=== PATIENT | female | born 1975 | race Caucasian/White ===

== ENCOUNTER 2024-03-16 13:17 | Emergency (ER) | payer MEDICAID, SELFPAY ==
[2024-03-16 13:33] VITALS: BP 171/95; PULSE 84; RESP 16; TEMP 36.6; O2SAT 100
--- NOTE | 2024-03-16 14:02 | ED_ITS ---
HPI - General Adult General Chief complaint: Insect Bite Stated complaint: Bee stings on legs Time Seen by Provider: 03/16/24 13:39 History of Present Illness HPI narrative: This 48-year-old female comes in with her who was also stung by a bee. This patient was stung in her right lower leg. She has some localized swelling and mild erythema at the site where she was stung but is not displaying any other symptoms related to this bee sting. This tingling occurred about an hour prior to arrival. She states that she has been stung by bees in the past and never had any significant allergic reaction. Related Data Home Medications ?Medication ?Instructions ?Recorded ?Confirmed Unobtainable 03/16/24 03/16/24 Allergies Allergy/AdvReac Type Severity Reaction Status Date / Time cephalexin [From Keflex] Allergy Intermediate Dizziness Verified 03/16/24 13:35 Review of Systems Status of ROS: Reports: 10 or more systems reviewed and unremarkable except as noted in History and below Narrative: Constitutional: No fevers, no weight gain or loss. Eyes: No discharge. No vision changes. HENT: No congestion, no sore throat, no ear pain. Cardiovascular: No chest pain, no palpitations. Respiratory: No shortness of breath, no wheezes, no cough. Gastrointestinal: No abdominal pain, no vomiting, no diarrhea. Genitourinary: No dysuria, no hematuria. Musculoskeletal: Normal range of motion. Skin: No rashes, no pruritis. Small area of swelling with erythema on the calf of the right lower extremity where a bee sting occurred. Neurological: No dizziness, weakness, sensory change, speech change. Endo/Heme/Allergies: No bruising or bleeding. No polydipsia. Pysch: no suicidality, no anxiety, no insomnia. All other systems reviewed and are negative. PFSH PFSH Social History Smoking Status: Never smoker How often do you have a drink containing alcohol: never How often do you have six or more drinks on one occasion: Never AUDIT-C Alcohol total score: 0 Non-prescribed substance use: denies use service: No Exam Const: Vital Signs, click to edit/add: Vital Signs - 24 hr 03/16/24 13:33 Temperature 97.9 F Pulse Rate [Pulse Oximeter] 84 Respiratory Rate 16 Blood Pressure [Ri ght Upper Arm] 171/95 H Pulse Oximetry 100 Oxygen Delivery Me thod Room Air Course Vital Signs Vital signs: Initial Vital Signs Temperature 97.9 F 03/16/24 13:33 Temperature Source Temporal Artery Scan 03/16/24 13:33 Pulse Rate 84 03/16/24 13:33 Pulse Rhythm Regular 03/16/24 13:33 Respiratory Rate 16 03/16/24 13:33 Blood Pressure 171/95 H 03/16/24 13:33 Blood Pressure Mean 120 H 03/16/24 13:33 Blood Pressure Position Sitting 03/16/24 13:33 Pulse Oximetry 100 03/16/24 13:33 Oxygen Delivery Method Room Air 03/16/24 13:33 Vital Signs Temperature 97.9 F 03/16/24 13:33 Pulse Rate 84 03/16/24 13:33 Respiratory Rate 16 03/16/24 13:33 Blood Pressure 171/95 H 03/16/24 13:33 Pulse Oximetry 100 03/16/24 13:33 Oxygen Delivery Method Room Air 03/16/24 13:33 Temperature 97.9 F 03/16/24 13:33 Pulse Rate 84 03/16/24 13:33 Respiratory Rate 16 03/16/24 13:33 Blood Pressure 171/95 H 03/16/24 13:33 Pulse Oximetry 100 03/16/24 13:33 Oxygen Delivery Method Room Air 03/16/24 13:33 Medical Decision Making MDM Narrative Medical decision making narrative: This patient comes in with her significant other as both of them were stung by bees about an hour prior to arrival. This patient has some localized symptoms on her right lower extremity but does not show any other adverse effects. I did discuss treatment options including steroid and antihistamine. She declined any treatments here and states that she can use [id number] antihistamine as needed. Discharge Plan Discharge Clinical Impression: Bee sting reaction Patient Disposition: Home, Self-Care Condition: Stable Additional Instructions: Use [id number] medicines as needed and directed. Follow up with MD or return if worsening. Prescriptions: No Action Unobtainable Follow Up/Referrals: Eliana Figueroa MD [Primary Care Provider] - Stand Alone Forms: [facility] Info Instructions
== END 2024-03-16 15:26 | disposition home or self-care (01) ==
PROVIDERS: Emergency Provider Emergency Medicine Emergency Medical Services; PCP Family Medicine
DX: T63.441A Toxic effect of venom of bees, accidental (unintentional), initial encounter (principal); S81.851A Open bite, right lower leg, initial encounter
CPT/HCPCS: 99282; 99284